=== PATIENT | female | born 1940 | race Caucasian/White ===

== ENCOUNTER → 2021-11-24 | Outpatient (CLI) | payer MEDICARE, BC ==
[~2021-11-24] MED LIST: AMLODIPINE BESY10 MG PO; ANORO ELLIPTA1 EACH INH; BENAZEPRIL HCL10 MG PO; ELIQUIS 2.5 MG2.5 MG PO; LORTAB 5-325 M1 EACH PO; NICOTINE PATCH1 EAC2 TOP; PRAVASTATIN SOD20 MG PO; SYNTHROID75 MCG PO
== END ==
LOC: EROP 10:38
DX: U07.1 COVID-19 (principal); Z23 Encounter for immunization; J44.9 Chronic obstructive pulmonary disease, unspecified; I10 Essential (primary) hypertension
CPT/HCPCS: M0247; Q0247